=== PATIENT | male | born 1995 | race Two or more races ===

== ENCOUNTER 2020-05-31 20:01 | Emergency (ER) | payer OTHER ==
[2020-05-31 20:20] VITALS: BP 117/68; PULSE 72; TEMP 98.5; BMI 21.1
[2020-05-31] MEDS ORDERED: KETOROLAC TROMETHAMINE 30 MG/1 ML VIAL IM ONE (20:51)
[2020-05-31] MEDS ORDERED: KETOROLAC TROMETHAMINE 30 MG/1 ML VIAL ONE (21:03)
== END 2020-05-31 21:49 | disposition home or self-care (01) ==
LOC: JERFT 20:01 → JER 20:01 → JERFT 21:49
PROC: 3E023GC Introduction of Other Therapeutic Substance into Muscle, Percutaneous Approach (ICD-10-PCS; principal; 2020-05-31)
DX: M25.511 Pain in right shoulder (principal); M54.2 Cervicalgia; V49.40XA Driver injured in collision with unspecified motor vehicles in traffic accident, initial encounter
CPT/HCPCS: 99284-25